=== PATIENT | male | born 1965 | race African-American/Black ===

== ENCOUNTER 2017-07-30 09:06 | Emergency (ER) | payer OTHER ==
[~2017-07-30 09:06] MED LIST: Iodixanol 320 MG/ML (100 ML BOT) ONE
[2017-07-30 10:09] LABS: #Basophils 0.1 thou/uL (0.0-0.2); #Lymphocytes 0.5 thou/uL (1.20-3.40); #Monocytes 0.6 thou/uL (0.11-0.59); #Neutrophils 6.6 thou/uL (1.40-6.50); %Basophils 1.3 % (0.0-1.0); %Eosinophils 0.4 % (0.0-10.0); %Lymphocytes 6.3 % (21.0-51.0); %Monocytes 8.1 % (0.0-10.0); %Neutrophils 83.9 % (42.0-75.0); Hemoglobin 7.9 g/dL (14.0-18.0); Mean Corpuscular HGB CONC 30.7 g/dL (32.0-36.0); Mean Corpuscular Hemoglobin 28.9 pg (27.0-31.0); Mean Corpuscular Volume 94.1 fl (80.0-94.0); Mean Platelet Volume 6.9 fL (7.4-10.4); Platelet Count 188 thou/uL (130-400); RBC Distribution Width 18.5 % (11.5-14.5); Red Blood Cell (RBC) Count 2.74 mill/uL (4.70-6.10); White Blood Cell (WBC) Count 7.9 thou/uL (4.8-10.8)
[2017-07-30 10:23] LABS: ALT (SGPT) 22 U/L (8-55); AST (SGOT) 16 U/L (5-34); Albumin 4.2 g/dL (3.5-5.0); Alkaline Phosphatase 61 U/L (40-150); Anion Gap 33 mmol/L (10-20); Bilirubin, Total 0.9 mg/dL (0.2-1.2); Calc. Creatinine Clearance 0 mL/min (70-130); Calcium 9.3 mg/dL (7.8-10.44); Carbon Dioxide 17 mmol/L (22-29); Chloride 102 mmol/L (98-107); Estimated GFR-MDRD 2; Globulin 2.7 g/dL (2.4-3.5); Glucose 109 mg/dL (70-105); Lipase 37 U/L (8-78); Protein, Total 6.9 g/dL (6.0-8.3); Sodium 145 mmol/L (136-145)
[2017-07-30 10:39] LABS: Potassium 7.3 mmol/L (3.5-5.1)
[2017-07-30] MEDS ORDERED: Ondansetron HCl/PF 4 MG/2 ML Vial ONE ×2 (10:56→12:37)
[2017-07-30 11:03] LABS: BUN (Urea Nitrogen) 119 mg/dL (8.4-25.7)
--- NOTE | 2017-07-30 11:14 | RAD ---
PORTABLE AP CHEST XRAY: DATE: 07/30/17. HISTORY: Cough. Mid abdominal pain. The patient has missed the last 3 dialysis appointments. FINDINGS: The cardiac silhouette is enlarged. There are increased perihilar interstitial opacities suggesting mild pulmonary edema. No focal area of consolidation or pleural fluid is seen. Osseous structures a re intact. IMPRESSION: 1. Mild pulmonary edema. 2. Cardiomegaly. POS: [facility]
--- NOTE | 2017-07-30 14:53 | CT ---
CT OF ABDOMEN AND PELVIS: DATE: 07/30/17. COMPARISON: None. HISTORY: Left lower quadrant pain. TECHNIQUE: Serial axial CT imaging obtained at 5 mm intervals from the lung bases through the pubic symphysis wi th intravenous contrast. Coronal reformatted imaging obtained. FINDINGS: Lack of oral contrast limits assessment of the bowel. There is a small incompletely imaged right ple ural effusion. Motion artifact limits evaluation of the lung bases. There is ground-glass opacity w ithin the imaged right lower lobe and right middle lobe. The findings are suspicious for pulmonary e cecelia. Heart is enlarged. No free intraperitoneal air is evident. Evaluation of the abdomen/pelvis is slightly limited on the basis of motion artifact. The kidneys are small, consistent with the provided history of end-stage renal disease. No focal musa er lesion is seen. There are splenic granuloma noted. Pancreas, adrenal glands, and gallbladder appear grossly unremarkable. There is mild diffuse haziness of the mesenteric fat, a nonspecific finding. No fluid or inflammatory stranding is seen in the presacral space. Motion limited assessment of the bowel without contrast media demonstrates no focal abnormality. There is scattered atherosclerotic calcification of the abdominal aorta, relatively mild. No lymphad enopathy is evident within the pelvis or retroperitoneum. Osseous structures demonstrate no acute findings. IMPRESSION: 1. Findings suggesting pulmonary edema. 2. No evidence for free intraperitoneal air or small bowel obstruction. POS: [facility]
== END 2017-07-30 13:45 | disposition short-term general hospital (02) ==
LOC: NAV ERS 09:06
DX: E87.5 Hyperkalemia (principal); R10.32 Left lower quadrant pain; I13.2 Hypertensive heart and chronic kidney disease with heart failure and with stage 5 chronic kidney disease, or end stage renal disease; I50.9 Heart failure, unspecified; N18.6 End stage renal disease; Z79.899 Other long term (current) drug therapy
CPT/HCPCS: 71010; 74177; 80053; 83605; 83690; 83880; 85025; 93005; 96374; 96376; J2405; Q9967

== ENCOUNTER 2017-10-10 19:51 | Emergency (ER) | payer OTHER ==
[2017-10-10] MEDS ORDERED: cloNIDine 0.1 MG TAB ONE (20:58)
[2017-10-10] MEDS ORDERED: hydrALAZINE 20 MG/ML VIAL ONE (21:27)
[2017-10-10 21:29] LABS: #Basophils 0.2 thou/uL (0.0-0.2); #Lymphocytes 0.7 thou/uL (1.20-3.40); #Monocytes 0.7 thou/uL (0.11-0.59); #Neutrophils 8.8 thou/uL (1.40-6.50); %Basophils 1.6 % (0.0-1.0); %Eosinophils 0.2 % (0.0-10.0); %Lymphocytes 6.2 % (21.0-51.0); %Neutrophils 84.9 % (42.0-75.0); Hemoglobin 10.2 g/dL (14.0-18.0); Mean Corpuscular HGB CONC 30.5 g/dL (32.0-36.0); Mean Corpuscular Hemoglobin 27.9 pg (27.0-31.0); Mean Corpuscular Volume 91.4 fl (80.0-94.0); Mean Platelet Volume 8.1 fL (7.4-10.4); Platelet Count 184 thou/uL (130-400); RBC Distribution Width 18.9 % (11.5-14.5); Red Blood Cell (RBC) Count 3.65 mill/uL (4.70-6.10); White Blood Cell (WBC) Count 10.4 thou/uL (4.8-10.8)
[2017-10-10 21:40] LABS: ALT (SGPT) 13 U/L (8-55); AST (SGOT) 10 U/L (5-34); Alkaline Phosphatase 61 U/L (40-150); Anion Gap 34 mmol/L (10-20); BUN (Urea Nitrogen) 109 mg/dL (8.4-25.7); Bilirubin, Total 0.8 mg/dL (0.2-1.2); CK (CPK) 169 U/L (30-200); Calc. Creatinine Clearance 0 mL/min (70-130); Calcium 10.3 mg/dL (7.8-10.44); Carbon Dioxide 18 mmol/L (22-29); Chloride 103 mmol/L (98-107); Estimated GFR-MDRD 3; Globulin 3.1 g/dL (2.4-3.5); Glucose 103 mg/dL (70-105); Lipase 27 U/L (8-78); Protein, Total 7.1 g/dL (6.0-8.3); Sodium 148 mmol/L (136-145)
[2017-10-10 21:48] LABS: CKMB 2.6 ng/mL (0-6.6); Troponin I 0.284 ng/mL (< 0.028)
[2017-10-10 21:49] LABS: Potassium 7.1 mmol/L (3.5-5.1)
[2017-10-10] MEDS ORDERED: Diltiazem 125 MG/25 ML ONE (21:52)
[2017-10-10] MEDS ORDERED: Sodium Chloride 0.9% 100 ML ONE (21:58)
[2017-10-10] MEDS ORDERED: Calcium Gluc 4.6 MEQ/10 ML (100 MG/ML) ONE (21:58)
[2017-10-10] MEDS ORDERED: Albuterol Sulfate 2.5 mg/0.5 ml Neb ONE ×2 (21:59)
--- NOTE | 2017-10-10 22:02 | RAD ---
PORTABLE CHEST: History: Cough. Comparison: 07-30-17 FINDINGS/IMPRESSION: Cardiomegaly again noted. Mild vascular engorgement. No focal infiltrate or significant effusion. No significant interval change noted. POS: [facility]
[2017-10-10] MEDS ORDERED: Sodium Bicarb 50 MEQ/50 ML Abboject 8.4% SYRINGE ONE (22:58)
== END 2017-10-10 23:15 | disposition short-term general hospital (02) ==
LOC: NAV ERS 19:51
DX: I13.2 Hypertensive heart and chronic kidney disease with heart failure and with stage 5 chronic kidney disease, or end stage renal disease (principal); N18.6 End stage renal disease; I50.9 Heart failure, unspecified; E87.5 Hyperkalemia; Z99.2 Dependence on renal dialysis; Z79.899 Other long term (current) drug therapy
CPT/HCPCS: 71045; 80053; 82550; 82553; 83690; 83880; 84484; 85025; 85379; 87804; 93005; 96365; 96375; 96376; J0360; J7611

== ENCOUNTER 2020-09-16 17:32 | Outpatient (CLI) | payer OTHER ==
--- NOTE | 2020-09-16 17:57 | RAD ---
Left hand 3 views HISTORY: Pain. Gouty arthritis. FINDINGS: The large, lobular collection of dystrophic calcification associated with primarily the vol ar soft tissues of the index finger, most pronounced at the level of the middle and distal phalanges, is similar in appearance to the prior exam. No underlying ossific destruction or aggressiv e erosions are evident. Associated soft tissue expansion. Mild osteoarthritic changes of the distal interphalangeal joints. The tiny nonaggressive lucency invo lving the medial base of the proximal phalanx of the little finger is stable. Calcification within the arterial structures. 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 No evidence of inflammatory arthritis. Atherosclerosis.
== END 2020-09-16 17:33 | disposition home or self-care (01) ==
LOC: NAV RAD 17:32
PROVIDERS: ATTEND Orthopaedic Surgery
DX: M10.342 Gout due to renal impairment, left hand (principal); I70.90 Unspecified atherosclerosis; M15.1 Heberden's nodes (with arthropathy)

== ENCOUNTER 2020-10-28 18:47 | Emergency (ER) | payer OTHER | END 2020-10-28 20:15 | disposition home or self-care (01) | LOC: NAV ERS 18:47 | DX: L94.2 Calcinosis cutis (principal); I25.2 Old myocardial infarction; I13.2 Hypertensive heart and chronic kidney disease with heart failure and with stage 5 chronic kidney disease, or end stage renal disease; I50.9 Heart failure, unspecified; N18.6 End stage renal disease | CPT/HCPCS: 99283 ==

== ENCOUNTER 2020-11-19 14:58 | Emergency (ER) | payer OTHER ==
[2020-11-19] MEDS ORDERED: Morphine 4 MG/ML VIAL ONE (15:33)
[2020-11-19] MEDS ORDERED: Promethazine HCl 25 MG/ML VIAL ONE (15:34)
== END 2020-11-19 16:00 | disposition home or self-care (01) ==
LOC: NAV ERS 14:58
DX: G89.18 Other acute postprocedural pain (principal); M79.645 Pain in left finger(s); I13.2 Hypertensive heart and chronic kidney disease with heart failure and with stage 5 chronic kidney disease, or end stage renal disease; N18.6 End stage renal disease; I50.9 Heart failure, unspecified; I25.2 Old myocardial infarction
CPT/HCPCS: 96372; 99283; J2270; J2550

== ENCOUNTER 2020-11-20 10:52 | Emergency (ER) | payer OTHER ==
[2020-11-20 12:10] LABS: #Basophils 0.1 thou/uL (0.0-0.2); #Eosinphils 0.5 thou/uL (0.0-0.7); %Basophils 1.4 % (0.0-1.0); Hemoglobin 10.1 g/dL (14.0-18.0); Mean Corpuscular HGB CONC 30.8 g/dL (32.0-36.0); White Blood Cell (WBC) Count 6.8 thou/uL (4.8-10.8)
[2020-11-20 12:14] LABS: #Lymphocytes 0.8 thou/uL (1.20-3.40); #Monocytes 0.7 thou/uL (0.11-0.59); #Neutrophils 4.8 thou/uL (1.40-6.50); %Eosinophils 6.8 % (0.0-10.0); %Lymphocytes 11.4 % (21.0-51.0); %Monocytes 9.8 % (0.0-10.0); %Neutrophils 70.7 % (42.0-75.0); Mean Corpuscular Hemoglobin 28.2 pg (27.0-31.0); Mean Corpuscular Volume 91.4 fL (78.0-98.0); Mean Platelet Volume 6.6 fL (7.4-10.4); Platelet Count 195 thou/uL (130-400); RBC Distribution Width 17.3 % (11.5-14.5); Red Blood Cell (RBC) Count 3.57 mill/uL (4.70-6.10)
[2020-11-20 12:28] LABS: ALT (SGPT) Less than 6 U/L (8-55); AST (SGOT) 15 U/L (5-34); Alkaline Phosphatase 77 U/L (40-110); Anion Gap 30 mmol/L (10-20); BUN (Urea Nitrogen) 102 mg/dL (8.4-25.7); Bilirubin, Total 0.6 mg/dL (0.2-1.2); CK (CPK) 408 U/L (30-200); Calc. Creatinine Clearance 0 mL/min (70-130); Calcium 9.8 mg/dL (7.8-10.44); Carbon Dioxide 25 mmol/L (22-29); Chloride 97 mmol/L (98-107); Globulin 2.7 g/dL (2.4-3.5); Glucose 142 mg/dL (70-105); Potassium 4.7 mmol/L (3.5-5.1); Protein, Total 6.7 g/dL (6.0-8.3); Sodium 147 mmol/L (136-145)
[2020-11-20 12:33] LABS: CKMB 4.1 ng/mL (0-6.6)
== END 2020-11-20 13:57 | disposition home or self-care (01) ==
LOC: NAV ERS 10:52
DX: R55 Syncope and collapse (principal); R41.82 Altered mental status, unspecified; R77.8 Other specified abnormalities of plasma proteins; I13.2 Hypertensive heart and chronic kidney disease with heart failure and with stage 5 chronic kidney disease, or end stage renal disease; I50.9 Heart failure, unspecified; N18.6 End stage renal disease; Z79.899 Other long term (current) drug therapy
CPT/HCPCS: 70450; 80053; 82140; 82550; 82553; 84484; 85025; 93005